=== PATIENT | female | born 1945 | race Caucasian/White ===

== ENCOUNTER 2017-01-09 12:02 | Outpatient (CLI) ==
[2016-06-08 16:16] VITALS: BMI 28.0
--- NOTE | 2017-01-09 12:33 | DI ---
EXAM: Three views of the thoracic spine. History: Thoracic back pain. Findings: No acute fracture or subluxation. Mild multilevel degenerative disc space narrowing with a few small anterior osteophytes. Moderate degenerative disc disease at C5-6 within the visualized cervical spine. Impression: No acute osseous abnormality of the thoracic spine. Mild degenerative disc disease of the thoracic spine. Moderate degenerative disc disease at C5-6.
--- NOTE | 2017-01-09 12:41 | DI ---
EXAM: Five views of the lumbar spine. History: Lower back pain. Comparison: Lumbar spine radiograph 04/10/2016 Findings: Atherosclerotic vascular calcifications. Stable minimal anterolisthesis of L4 on L5. Mod erate disc space narrowing at L5-S1 again noted. Mild to moderate disc space narrowing is seen else where. Moderate facet hypertrophy from L4-S1. Impression: No acute findings. Degenerative changes. No significant interval change compared to t he prior study.
== END 2017-01-09 12:03 | disposition home or self-care (01) ==
LOC: RAD 12:02
PROVIDERS: ATTEND Emergency Medicine
DX: M54.9 Dorsalgia, unspecified (principal)

== ENCOUNTER 2017-04-27 10:41 | Outpatient (CLI) ==
[2016-06-08 16:16] VITALS: BMI 28.0
--- NOTE | 2017-04-29 08:37 | MAMMO ---
EXAM: Bilateral digital screening mammogram History: Screening. Comparison: Bilateral mammogram 12/01/2014 Findings: MLO and CC views of bilateral breasts demonstrate heterogeneously dense breast parenchyma which can obscure small lesions. Stable benign right breast calcifications. There are no dominant masses, no suspicious microcalcifications and no architectural distortions Impression: Benign stable mammogram. Recommend followup routine screening mammography in 1 year. BIRADS 2
== END 2017-04-27 10:42 | disposition home or self-care (01) ==
LOC: RAD 10:41
PROVIDERS: ATTEND Internal Medicine
DX: Z12.31 Encounter for screening mammogram for malignant neoplasm of breast (principal)

== ENCOUNTER 2017-07-25 14:09 | Emergency (ER) | payer OTHER ==
[2017-07-25 14:17] VITALS: BP 149/87; TEMP 96.2; BMI 30.1
--- NOTE | 2017-07-25 14:43 | ED.PDOC ---
General ED Provider: Dr. KIARA PERALTA Chief Complaint: Dizziness Stated Complaint: Brijesh present with vertigo onset on arising this AM. Room spins, she gets nauseated and vomited twice. Also has had watery diarrhea 10+ times since yesterday. Also has had urinary frequency since this AM. Time Seen by Physician: 14:30 Mode of Arrival: Walk-In Information Source: Patient Primary Care Provider: DAVID JONES Nursing and Triage Documentation Reviewed and Agree: Yes EENT Complaint Exam - Ear Complaint/Exam Onset/Duration: since awaking this AM Symptoms Are: Still present (though sx have lessened in the past hour) Timing: Constant Initial Severity: Severe Current Severity: Moderate Character: Reports: Room spinning Aggravating: Reports: Movement Alleviating: Reports: OTC Meds (Took an OTC meclizine 25 mg this AM which eased her symptoms for a few hours) Associated Signs and Symptoms: Reports: Headache (mild occipital UNGER since about noon. Also having urinary frequency since awakening this AM.) Ear Surgical History: None Vesicles to External Pinna: No Vesicles to Tragus: No TMJ Tenderness: None Mastoid Tenderness: None Tragal Tenderness: None External Canal: Normal Tympanic Membrane: Dullness Differential Diagnoses: Other (labyrinthitis, UTI) Review of Systems - Review Of Systems Constitutional: Reports: No symptoms Eyes: Reports: Other (vertigo) Ears, Nose, Mouth, Throat: Reports: No symptoms Respiratory: Reports: No symptoms Cardiac: Reports: No symptoms GI: Reports: Nausea, Vomiting : Reports: Frequency Musculoskeletal: Reports: No symptoms Skin: Reports: No symptoms Neurological: Reports: No symptoms All Other Systems: Reviewed and Negative Past Medical History - Past Medical History Endocrine: Reports: Dyslipidemia Cardiovascular: Reports: Hypertension Respiratory: Reports: None Hematological: Reports: None Gastrointestinal: Reports: None Genitourinary: Reports: None Neuro/Psych: Reports: Depression Musculoskeletal: Reports: None Cancer: Reports: None Last Menstrual Period: N/A - Surgical History General Surgical History: Reports: Unknown - Family History Family History: Reports: Unknown - Social History Smoking Status: Former smoker Hx Substance Use: No Alcohol Screening: None - Immunizations Tetanus Shot up to Date: Yes Physical Exam - Physical Exam Appearance: Well-appearing, No pain distress, Well-nourished Ill-appearing: None Pain Distress: None Eyes: DOM (positive barany test), EOMI, Conjunctiva clear ENT: Nose normal, Oropharynx normal, TMs Occluded (TMs mayo and dull) Neck: Supple Respiratory: Airway patent Cardiovascular: RRR, Pulses normal, No rub, No murmur GI/: Soft, Nontender, No masses, Bowel sounds normal, No Organomegaly Musculoskeletal: Normal strength, ROM intact, No edema, No calf tenderness Skin: Warm, Dry, Normal color Neurological: Sensation intact Psychiatric: Affect appropriate, Mood appropriate Critical Care Note - Critical Care Note Total Time (mins): 0 Course - Course Hematology/Chemistry: 07/25/17 14:43 07/25/17 14:43 Vital Signs: Temp Pulse Resp BP Pulse Ox 07/25/17 14:09 96.2 F L 71 20 149/87 H 96 Departure - Departure Time of Disposition: 16:00 Disposition: HOME SELF-CARE Discharge Problem: Viral labyrinthitis Qualifiers: Laterality: unspecified laterality Qualified Code(s): H83.09 - Labyrinthitis, unspecified ear Instructions: Labyrinthitis (ED) Condition: Good Pt referred to PMD for follow-up: No (see doctor if no better in 3 days) Allergies/Adverse Reactions: Allergies iodine Adverse Reaction (Verified 07/25/17 14:19) morphine Adverse Reaction (Verified 07/25/17 14:19) Home Medications: Ambulatory Orders Aspirin [Aspirin EC] 162 mg PO DAILYWM 11/13/15 Cholecalciferol (Vitamin D3) [Vitamin D] 1,000 unit PO DAILY 11/13/15 Pravastatin Sodium [Pravachol] 40 mg PO DAILY 11/13/15 Losartan Potassium [Cozaar] 1 tab PO DAILY 07/25/17 Meclizine HCl [Antivert] 25 mg PO QID PRN #20 tablet 07/25/17 Disposition Discussed With: Patient
[2017-07-25 14:57] LABS: BASOPHILS # (AUTO) 0.1 K/uL (0-0.2); BASOPHILS % (AUTO) 0.8 % (0.0-3.0); EOSINOPHILS # (AUTO) 0.1 K/ul (0.0-0.7); EOSINOPHILS % (AUTO) 1.3 % (0.0-7.0); HEMATOCRIT 40.4 % (37.0-47.0); HEMOGLOBIN 13.5 g/dl (12.0-16.0); IMMATURE GRANULOCYTE % (AUTO) 0.3 % (0.0-5.0); LYMPHOCYTES # (AUTO) 2.4 K/uL (0.60-3.4); LYMPHOCYTES % (AUTO) 31.1 (10.0-50.0); MEAN CORPUSCULAR HEMOGLOBIN 27.5 pg (27.0-31.0); MEAN CORPUSCULAR HGB CONC 33.4 (31.8-35.4); MEAN CORPUSCULAR VOLUME 82.3 fl (81.0-99.0); MONOCYTES # (AUTO) 0.5 K/uL (0.4-2.0); MONOCYTES % (AUTO) 6.7 (0-10); NEUTROPHILS # (AUTO) 4.6 K/ul (2.0-6.9); NEUTROPHILS % (AUTO) 59.8; PLATELET COUNT 274 10^3/uL (140-440); RED BLOOD COUNT 4.91 10^6/ul (4.20-5.40); WHITE BLOOD COUNT 7.72 K/ul (4.6-10.2)
[2017-07-25 15:01] LABS: BILIRUBIN,URINE Negative (NEGATIVE); KETONES,URINE Negative (NEGATIVE); LEUKOCYTE ESTERASE ,URINE Negative (NEGATIVE); NITRITE,URINE Negative (NEGATIVE); PROTEIN,URINE Negative (NEGATIVE); URINE, BLOOD 1+ (NEGATIVE)
[2017-07-25 15:06] LABS: ADD URINE MICROSCOPIC YES
[2017-07-25 15:17] LABS: ALBUMIN/GLOBULIN RATIO 1.11; BILIRUBIN,TOTAL 0.7 mg/dL (0.00-1.20); BUN/CREATININE RATIO 15.53; CALCIUM 9.8 mg/dL (8.2-10.2); CREATININE 1.03 mg/dL (0.60-1.30); TOTAL PROTEIN 7.6 g/dL (5.8-8.1)
== END 2017-07-25 16:33 | disposition home or self-care (01) ==
LOC: ED 14:09
DX: H83.09 Labyrinthitis, unspecified ear (principal); R19.7 Diarrhea, unspecified; R11.2 Nausea with vomiting, unspecified; R35.0 Frequency of micturition
CPT/HCPCS: 36415; 80053; 81001; 85025; 99283

== ENCOUNTER 2018-03-03 09:12 | Outpatient (CLI) ==
--- NOTE | 2018-03-03 10:29 | MRI ---
EXAM: MRI right knee without contrast. HISTORY: Right knee pain. Swelling. No right knee surgery reported.. TECHNIQUE: Using a local extremity coil on a high field strength magnet multiplanar multisequence MR I was performed of the right knee without intravenous or intra-articular gadolinium contrast. FINDINGS: I do not have prior radiographs of the right knee available for comparison at the time of this dictation. Within the medial compartment there is changing slope to the posterior horn medial meniscus extending to the posterior horn body junction. Filling defect along the superior recess at the level of the b sarah which may reflect displaced torn portion of meniscus. Chondrosis and cartilage surface irregular ity with some attenuation over the weightbearing medial compartment. Productive osteophyte formation . Within the lateral compartment lateral meniscus is intact without discrete surfacing meniscal tear. The lateral compartment cartilage congruent without focal underlying subchondral edema. Within the patellofemoral compartment the patella seated with intact medial and lateral patellar reti naculum. Patellar chondrosis/chondromalacia patella over the superior portion of the median ridge/me dial facet with underlying subchondral remodeling/cyst formation. The trochlear groove cartilage rel atively congruent without underlying subchondral edema. Early patellofemoral compartment productive osteophyte formation. Moderate sized right knee effusion. No large osteochondral loose bodies. Intact ACL and PCL ligamen t fibers. The extensor mechanism is intact. The medial collateral ligament as well as lateral colla teral ligament complex and posterolateral corner intact. Small posterior joint extension/popliteal c yst.. IMPRESSION: Changing slope to the posterior horn medial meniscus extending to the posterior horn bod y junction compatible with tear. Filling defect along the superior recess of the level of the body w hich may reflect displaced torn portion of meniscus. Changes of osteoarthrosis, medial and patellofemoral compartment dominant. Moderate sized right knee effusion. Intact cruciate and collateral ligaments. Small posterior joint extension/popliteal cyst.
== END 2018-03-03 09:13 | disposition home or self-care (01) ==
LOC: RAD 09:12
PROVIDERS: ATTEND Internal Medicine
DX: M25.561 Pain in right knee (principal)

== ENCOUNTER 2019-06-22 12:49 | Outpatient (CLI) ==
--- NOTE | 2019-06-22 15:14 | MRI ---
EXAM: MRI thoracic spine without contrast Date: 06/22/2019 COMPARISON: Thoracic spine radiograph 01/09/2017 HISTORY: Back pain. TECHNIQUE: Routine MR images of the thoracic spine were obtained without IV Gadolinium. FINDINGS: Thoracic spinal cord is normal in signal and morphology. No intradural extramedullary mas ses. No evidence of spinal AV fistula. No acute fracture. Vertebral bodies are normal in height an d alignment. There are benign hemangiomas at T2, T3, and T4. No worrisome marrow signal abnormality . No significant disc height narrowing. No significant central spinal canal or neural foramen steno sis. Small disc protrusions at T8-T9 and T11-T12. IMPRESSION: No acute compression fracture or spinal cord compression. No significant central spinal canal or neural foramen stenosis.
--- NOTE | 2019-06-22 15:21 | MRI ---
EXAM: MRI cervical spine without contrast Date: 06/22/2019 Comparison: cervical spine radiograph on 04/10/2016 History: Neck pain. Back pain. TECHNIQUE: Routine MR images of the cervical spine were obtained without IV Gadolinium. FINDINGS: The craniocervical junction appears normal. The cervical spinal cord is normal in signal and morphology. No acute fracture. Chronic mild anterior wedging of C5 and C6 vertebral bodies. Gr chris 1 retrolisthesis of C4 on C5 and C5 on C6. No significant disc height narrowing. No worrisome m arrow signal abnormality. C2-C3: No significant central spinal canal or neural foraminal stenosis. C3-C4: Small disc protrusion effaces the anterior subarachnoid space.. No significant central spina l canal or neural foraminal stenosis. C4-C5: No significant central spinal canal or neural foramen stenosis. C5-C6: There is bilateral uncovertebral hypertrophy and moderate diffuse disc bulge causing severe c entral spinal canal stenosis and severe bilateral neural foramen stenosis. C6-C7: Severe left neural foramen stenosis secondary to left uncovertebral hypertrophy. Mild right neural foramen stenosis. No significant central spinal canal stenosis. C7-T1: Mild left neural foramen stenosis secondary to left uncovertebral hypertrophy. No significan t central spinal canal or right neural foramen stenosis. Impression: Multilevel degenerative disc disease of the cervical spine including severe central spin al canal stenosis and severe bilateral neural foraminal stenosis at C5-C6.
== END 2019-06-22 12:50 | disposition home or self-care (01) ==
LOC: RAD 12:49
PROVIDERS: ATTEND Internal Medicine
DX: M54.2 Cervicalgia (principal); M54.9 Dorsalgia, unspecified